=== PATIENT | male | born 1960 | race Two or more races ===

== ENCOUNTER → 2024-02-29 | Outpatient (BNVA) | payer MEDICAID, SELFPAY | END | disposition home or self-care (01) | PROVIDERS: PCP Physician Assistant; Referring Provider Physician Assistant; Visit Provider Urology | DX: C61 Malignant neoplasm of prostate (principal); Z90.79 Acquired absence of other genital organ(s); I10 Essential (primary) hypertension; Z46.6 Encounter for fitting and adjustment of urinary device | CPT/HCPCS: 96372; 99212; G0463 ==

== ENCOUNTER → 2024-06-03 | Outpatient (BNVA) | payer MEDICAID, SELFPAY | END | disposition home or self-care (01) | PROVIDERS: PCP Physician Assistant; Referring Provider Physician Assistant; Visit Provider Urology | DX: C61 Malignant neoplasm of prostate (principal); R32 Unspecified urinary incontinence; N52.9 Male erectile dysfunction, unspecified; I10 Essential (primary) hypertension | CPT/HCPCS: 81003; 99212; G0463 ==

== ENCOUNTER → 2024-06-13 | Outpatient (CLI) | payer MEDICAID, SELFPAY ==
--- NOTE | 2024-06-13 12:32 | XR_ITS ---
Examination: Lumbar spine, 5 views Technique: Lumbar spine AP, lateral, coned lateral lower lumbar spine, bilateral obliques 5 views Exam date and time: June 13, 2024 1433 hours INDICATIONS: Injury to lower back 3 weeks ago lower back pain. FINDINGS: Moderate osteopenia. No lumbar fracture. Diffuse [id number] lumbar degenerative disc disease. No spondylolisthesis IMPRESSION: No lumbar fracture Diffuse [id number] lumbar degenerative disc disease
== END | disposition home or self-care (01) ==
PROVIDERS: PCP Physician Assistant; Referring Provider Physician Assistant; Visit Provider Physician Assistant
DX: M51.369 Other intervertebral disc degeneration, lumbar region without mention of lumbar back pain or lower extremity pain (principal); S39.92XA Unspecified injury of lower back, initial encounter; X58.XXXA Exposure to other specified factors, initial encounter
CPT/HCPCS: 72110

== ENCOUNTER 2024-07-30 08:30 | Outpatient (RCR) | payer MEDICAID, SELFPAY ==
--- NOTE | 2024-07-16 14:44 | PT.OIERPT ---
PT OP Initial Eval Patient Information Outpatient Physical Therapy Treatment Date: 07/16/24 Visit Reasons: back pain Medical Diagnosis: M54.16 Treatment Dx #1: LBP with radiculopathy Start of Care: 07/16/24 Date of Onset: 1 month ago Smoking Status Smoking Status: Never smoker Initial Assessment Subjective: Pt is 63 yr old bangladeshi speaking male who bend down to shovel dirt and felt a pain in the back of the R side beltline running down the glute and LE to the calf mm. Since then the R foot slaps when he walks and the toes are numb sometimes when he kneels down. He denies LBP but the R LE hurts. He is not working at this time. PMH: HTN, high cholesterol, pre-DM, prostate removal Imaging: Xray of L/S Diffuse [id number] lumbar degenerative disc disease Pt goal: to get rid of the R LE pain Objective: ?Trunk ArOM: ? B SB 50% of normal with pain ? Extension: 20% with pain around L4-5, L5-S1 ? Flexion: 2 from floor ? B rotation: 60% without pain ? R ankle DF strength: 3+/5 ? TTP: moderate paraspinals L5-S1 ? Neuro: R SLR: positive Assessment: Pt presents with trunk flexion sensitivity and overlying myofascial pain ? and TTP around L5-S1 consistent with Xrays that show ? lower lumbar DDD, along with R LE radiculopathy and foot drop. Pt requires skilled therapy in order to meet goals and has fair rehab potential. Eval followed by HEP printout. Short Term and Package Clerk Goals 1. Ind with HEP ? 2. Improved sitting/standing tolerance to 60 minutes with <=4/10 LBP ? 3. Decreased lower paraspinal TTP from mod to min 4. Decreased foot drop by 50% at ankle DF strength to at least 4-/5 Treatment Plan ? 1. Manual therapy ? 2. Therex ? 3. Modalities as indicated, moist heat, ice, estim, mechanical traction Frequency and Duration: 1-2x a week for 16 visits Certification Dates: 07/16/24 to 10/15/24 Procedure Charges OP PT Eval Mod Complex 30 minutes: Yes
--- NOTE | 2024-07-23 10:08 | PT.ODAYNRPT ---
PT Outpatient Daily Note OP Daily Note Outpatient Physical Therapy Treatment Date: 07/23/24 Visit Reasons: back pain Subjective: No pain with trunk extension HEP Objective: See F/S for therex Assessment: Pt tends to round the LB with bending and loses lordosis Plan: Continue per POC Length of Time (minutes) of Treatment: 30 Minutes Procedure Charges Therapeutic Exercise 30 minutes: Yes
--- NOTE | 2024-07-30 09:12 | PT.ODAYNRPT ---
PT Outpatient Daily Note OP Daily Note Outpatient Physical Therapy Treatment Date: 07/30/24 Visit Reasons: back pain Subjective: No pain with trunk extension HEP Objective: See F/S for therex Assessment: Pt tends to round the LB with bending and loses lordosis. Gave HEP printout. Plan: Continue per POC Length of Time (minutes) of Treatment: 30 Minutes Procedure Charges Therapeutic Exercise 30 minutes: Yes
== END 2024-08-05 23:59 | disposition home or self-care (01) ==
LOC: CPTX 08:30
PROVIDERS: PCP Nurse Practitioner Family; Referring Provider Nurse Practitioner Family; Visit Provider Nurse Practitioner Family
DX: M54.16 Radiculopathy, lumbar region (principal); I10 Essential (primary) hypertension
CPT/HCPCS: 97110; 97162

== ENCOUNTER 2024-09-04 14:30 | Outpatient (RCR) | payer MEDICAID, SELFPAY ==
--- NOTE | 2024-08-06 08:55 | PT.ODAYNRPT ---
PT Outpatient Daily Note OP Daily Note Outpatient Physical Therapy Treatment Date: 08/06/24 Visit Reasons: Back pain Subjective: Less LBP since last visit Objective: See F/S for therex Assessment: Pt tends to round the LB with bending and loses lordosis. Gave HEP printout. Plan: Continue per POC Length of Time (minutes) of Treatment: 30 Minutes Procedure Charges Therapeutic Exercise 30 minutes: Yes
--- NOTE | 2024-08-08 09:10 | PT.ODAYNRPT ---
PT Outpatient Daily Note OP Daily Note Outpatient Physical Therapy Treatment Date: 08/08/24 Visit Reasons: Back pain Subjective: Pt reports some progress with LBP symptoms. Objective: Please see flow sheet for ther ex list. Assessment: Pt able to replicate repeated lumbar extension exercise with good technique. Plan: Continue wtih pOC. Length of Time (minutes) of Treatment: 30 Minutes Procedure Charges Therapeutic Exercise 30 minutes: Yes
--- NOTE | 2024-08-12 09:03 | PT.ODAYNRPT ---
PT Outpatient Daily Note OP Daily Note Outpatient Physical Therapy Treatment Date: 08/12/24 Visit Reasons: Back pain Subjective: Less LBP and LE pain. Objective: See F/S for therex Assessment: The R foot drops but ankle has more strength into dorsiflexion Plan: Continue per POC Length of Time (minutes) of Treatment: 30 Minutes Procedure Charges Therapeutic Exercise 30 minutes: Yes
--- NOTE | 2024-08-14 08:43 | PT.ODAYNRPT ---
PT Outpatient Daily Note OP Daily Note Outpatient Physical Therapy Treatment Date: 08/14/24 Visit Reasons: Back pain Subjective: Less LBP and LE pain. Objective: See F/S for therex Assessment: The R foot drops but ankle has more strength into dorsiflexion Plan: Continue per POC Length of Time (minutes) of Treatment: 30 Minutes Procedure Charges Therapeutic Exercise 30 minutes: Yes
--- NOTE | 2024-08-20 15:48 | PT.ODAYNRPT ---
PT Outpatient Daily Note OP Daily Note Outpatient Physical Therapy Treatment Date: 08/20/24 Visit Reasons: Back pain Subjective: Pt reports back is doing better, notices pain in the lags have reduced. Objective: Please see flow sheet for ther ex list. Assessment: Pt responding to repeated lumbar extension with centralizing symtpoms, pt encouraged to continue performing for HEP. Plan: Continue with POC. Length of Time (minutes) of Treatment: 30 Minutes Procedure Charges Therapeutic Exercise 30 minutes: Yes
--- NOTE | 2024-08-22 16:18 | PT.ODAYNRPT ---
PT Outpatient Daily Note OP Daily Note Outpatient Physical Therapy Treatment Date: 08/22/24 Visit Reasons: Back pain Subjective: Pt reports progress with symptoms, notices less pain. Objective: Please see flow sheet for ther ex list. Assessment: Added rows exercise with light thera band, pt required verbal cues and demonstration to avoid retro rocking body during exercise pt complied. Plan: Continue with pOC. Length of Time (minutes) of Treatment: 30 Minutes Procedure Charges Therapeutic Exercise 30 minutes: Yes
--- NOTE | 2024-09-02 15:44 | PT.ODAYNRPT ---
PT Outpatient Daily Note OP Daily Note Outpatient Physical Therapy Treatment Date: 09/02/24 Visit Reasons: Back pain Subjective: Pt reports back is doing better. Objective: Please see flow sheet for ther ex list. Assessment: Progression of interventions completed with muscle fatigue but no pain to report. Plan: Continue with poC. Length of Time (minutes) of Treatment: 30 Minutes Procedure Charges Therapeutic Exercise 30 minutes: Yes
--- NOTE | 2024-09-04 15:21 | PT.ODAYNRPT ---
PT Outpatient Daily Note OP Daily Note Outpatient Physical Therapy Treatment Date: 09/04/24 Visit Reasons: Back pain Subjective: Less LBP and LE pain and less foot drop on R Objective: See F/S for therex Mechanical traction L/s x7' at 50 lbs Assessment: The R ankle has more strength into dorsiflexion since starting therapy. Good progress with pain goals so far Plan: Continue per POC Length of Time (minutes) of Treatment: 30 Minutes Procedure Charges Therapeutic Exercise 30 minutes: Yes
== END 2024-09-04 23:59 | disposition home or self-care (01) ==
LOC: CPTX 14:30
PROVIDERS: PCP Nurse Practitioner Family; Referring Provider Nurse Practitioner Family; Visit Provider Nurse Practitioner Family
DX: M54.16 Radiculopathy, lumbar region (principal); I10 Essential (primary) hypertension
CPT/HCPCS: 97110

== ENCOUNTER 2024-09-25 15:30 | Outpatient (RCR) | payer MEDICAID, SELFPAY ==
--- NOTE | 2024-09-11 15:17 | PT.ODAYNRPT ---
PT Outpatient Daily Note OP Daily Note Outpatient Physical Therapy Treatment Date: 09/11/24 Visit Reasons: back pain Subjective: Pt denies pain, says he has not had pain for some time now. Objective: Please see flow sheet for ther ex list. Assessment: Pt tolerates interventions well, no pain to report. Plan: Continue with POC. Length of Time (minutes) of Treatment: 30 Minutes Procedure Charges Therapeutic Exercise 30 minutes: Yes
--- NOTE | 2024-09-13 15:36 | PT.ODAYNRPT ---
PT Outpatient Daily Note OP Daily Note Outpatient Physical Therapy Treatment Date: 09/13/24 Visit Reasons: back pain Subjective: Pt reports back is doing better, could be up on his feet all day doing normal routine with no issues. Objective: Please see flow sheet for ther ex list. Assessment: Progression of interventions completed with good tolerance. Pt required verbal cues and demonstration to perform mountain climber exercise avoiding trunk flexion. Plan: Continue with POC. Length of Time (minutes) of Treatment: 30 Minutes Procedure Charges Therapeutic Exercise 30 minutes: Yes
--- NOTE | 2024-09-16 15:02 | PT.ODAYNRPT ---
PT Outpatient Daily Note OP Daily Note Outpatient Physical Therapy Treatment Date: 09/16/24 Visit Reasons: back pain Subjective: Less LBP and LE pain and less foot drop on R Objective: See F/S for therex Assessment: The R ankle has more strength into dorsiflexion since starting therapy. Good progress with pain goals so far and good demo of core activation therex. Plan: Continue per POC Length of Time (minutes) of Treatment: 30 Minutes Procedure Charges Therapeutic Exercise 30 minutes: Yes
--- NOTE | 2024-09-25 17:54 | PT.ODS1RPT ---
PT OP Progress/Discharge Note Date of Service: 09/25/24 Progress Note/DC Note Progress Note/Discharge Note: DC Note Patient Information Visit Reasons: back pain Service Continue Service or Discharge: Discharge Discharge Date: 09/25/24 Status Subjective: He isn't having LBP and LE pain and no foot drop on R since starting therapy Objective: See F/S for therex Trunk AROM: FB: full and painfree Extension: full and painfree R ankle DF strength: 4/5 TTP: min to none of lumbar paraspinals Assessment: Pt has attended the eval and 14 Rx sessions with very good progress to meet all therapy goals. The R ankle has much more strength into dorsiflexion since starting therapy and he doesn't foot drop or slap with gait. He has met the goal of decreased TTP of low back from mod to min and he is independent with HEP. Pt can sit/stand for 60 mins without LBP to meet that goal. Thank you for your referals. Plan: D/C with HEP Procedure Charges Therapeutic Exercise 30 minutes: Yes
== END 2024-10-05 23:59 | disposition home or self-care (01) ==
LOC: CPTX 15:30
PROVIDERS: PCP Nurse Practitioner Family; Referring Provider Nurse Practitioner Family; Visit Provider Nurse Practitioner Family
DX: M54.16 Radiculopathy, lumbar region (principal)
CPT/HCPCS: 97110

== ENCOUNTER → 2024-11-25 | Outpatient (BNVA) | payer MEDICAID, SELFPAY | END | disposition home or self-care (01) | PROVIDERS: PCP Physician Assistant; Referring Provider Physician Assistant; Visit Provider Urology | DX: C61 Malignant neoplasm of prostate (principal); Z90.79 Acquired absence of other genital organ(s); N39.3 Stress incontinence (female) (male); N52.9 Male erectile dysfunction, unspecified; I10 Essential (primary) hypertension | CPT/HCPCS: 81003; 99213; G0463 ==